=== PATIENT | male | born 1975 | race Caucasian/White ===

== ENCOUNTER 2020-10-18 17:26 | Inpatient (IN) | payer OTHER ==
[2020-10-18 20:39] VITALS: BMI 24.7
[2020-10-18] MEDS ORDERED: MAGNESIUM CITRATE 300 ML BOTTLE PO PRN (21:10)
[2020-10-18] MEDS ORDERED: ACETAMINOPHEN 325 MG TABLET (FP) PO PRN (21:10)
[2020-10-18] MEDS ORDERED: BISMUTH SUBSALICYLATE 524 MG/30 ML PO PRN (21:10)
[2020-10-18] MEDS ORDERED: MAGNESIUM HYDROX 2400MG/30ML ORAL SUSPENSION 30 ML CUP PO PRN (21:10)
[2020-10-18] MEDS ORDERED: NICOTINE 10 MG CARTRIDGE (INHALER) IH PRN (21:10)
[2020-10-18] MEDS ORDERED: methaDONE HCL 10 MG TABLET (FOR DETOX USE ONLY) PO ONE (21:10)
[2020-10-18] MEDS ORDERED: MAG HYDROX/AL HYDROX/SIMETH 30 ML UNIT-DOSE CUP PO PRN (21:10)
[2020-10-18] MEDS ORDERED: MENTHOL/PHENOL 1 EACH UD MM PRN (21:10)
[2020-10-18] MEDS: traZODone HCL 100 MG TABLET (FP) PO PRN (22:28)
[2020-10-18] MEDS: METHOCARBAMOL 500 MG TABLET PO PRN (22:28)
[2020-10-18] MEDS: MELATONIN 5 MG TABLETS PO SCH (22:28)
[2020-10-18] MEDS: hydrOXYzine PAMOATE 25 MG CAPSULE (FP) PO SCH (22:28)
[2020-10-18] MEDS: THIAMINE HCL 100 MG TABLET (FP) PO SCH (22:29)
[2020-10-18] MEDS: diazePAM 5 MG TABLET PO SCH (22:29)
[2020-10-18] MEDS: ALBUTEROL SO4 HFA INHALER IH SCH (22:41)
[2020-10-19] MEDS: ALBUTEROL SO4 HFA INHALER IH SCH ×4 (04:12→14:06)
[2020-10-19] MEDS: diazePAM 5 MG TABLET PO SCH ×4 (06:29→22:06)
[2020-10-19] MEDS: hydrOXYzine PAMOATE 25 MG CAPSULE (FP) PO SCH ×5 (06:30→22:05)
[2020-10-19] MEDS ORDERED: methaDONE HCL 10 MG TABLET (FOR DETOX USE ONLY) ONE (08:54)
[2020-10-19] MEDS: PRENATAL VITAMINS W/ FOLIC ACID TABLET (FP) PO SCH (10:13)
[2020-10-19] MEDS: METHOCARBAMOL 500 MG TABLET PO PRN ×2 (10:14→22:04)
[2020-10-19 10:52] LABS: HEMATOCRIT 36.9 % (35.4-49); HEMOGLOBIN 12.3 GM/dL (11.7-16.9); MCH 28.4 pg (25.7-33.7); MCHC 33.4 g/dl (32.0-35.9); MEAN PLT VOLUME 6.7 fl (7.5-11.1); PLATELET COUNT 306 10^3/uL (134-434); RBC 4.34 M/mm3 (4.00-5.60); RDW 14.6 % (11.9-15.9); WHITE BLOOD COUNT 4.9 K/mm3 (4.0-10.0)
[2020-10-19 12:06] LABS: BLOOD UREA NITROGEN 21.1 mg/dL (7-18); CALCIUM 8.7 mg/dL (8.5-10.1)
[2020-10-19 12:11] LABS: TOT PROT 6.4 g/dl (6.4-8.2)
[2020-10-19 12:13] LABS: BILIRUBIN,TOTAL 0.4 mg/dL (0.2-1)
[2020-10-19 12:14] LABS: ALBUMIN 3.3 g/dl (3.4-5.0)
[2020-10-19] MEDS ORDERED: ALBUTEROL SO4 HFA INHALER IH PRN (14:08)
[2020-10-19] MEDS: traZODone HCL 100 MG TABLET (FP) PO PRN (22:05)
[2020-10-19] MEDS: THIAMINE HCL 100 MG TABLET (FP) PO SCH (22:05)
[2020-10-19] MEDS: MELATONIN 5 MG TABLETS PO SCH (22:05)
[2020-10-20] MEDS: hydrOXYzine PAMOATE 25 MG CAPSULE (FP) PO SCH ×5 (07:09→22:23)
[2020-10-20] MEDS: diazePAM 5 MG TABLET PO SCH ×3 (07:09→22:23)
[2020-10-20] MEDS: ONDANSETRON *ODT* 4 MG TABLET SL PRN ×2 (08:54→20:38)
[2020-10-20] MEDS ORDERED: methaDONE HCL 10 MG TABLET (FOR DETOX USE ONLY) PO ONE (10:00)
[2020-10-20] MEDS: PRENATAL VITAMINS W/ FOLIC ACID TABLET (FP) PO SCH (11:42)
[2020-10-20] MEDS: diazePAM 5 MG TABLET PO PRN ×2 (11:42→18:11)
[2020-10-20] MEDS: cloNIDine HCL 0.1 MG TABLET PO PRN ×2 (13:02→22:25)
[2020-10-20] MEDS: METHOCARBAMOL 500 MG TABLET PO PRN (20:38)
[2020-10-20] MEDS: MELATONIN 5 MG TABLETS PO SCH (22:23)
[2020-10-20] MEDS: traZODone HCL 100 MG TABLET (FP) PO PRN (22:23)
[2020-10-20] MEDS: THIAMINE HCL 100 MG TABLET (FP) PO SCH (22:23)
[2020-10-20] MEDS: ACETAMINOPHEN 325 MG TABLET (FP) PO PRN (22:25)
[2020-10-21] MEDS: diazePAM 5 MG TABLET PO PRN ×3 (00:35→14:26)
[2020-10-21] MEDS: IBUPROFEN 400 MG TABLET (FP) PO PRN ×2 (00:38→14:28)
[2020-10-21] MEDS: hydrOXYzine PAMOATE 25 MG CAPSULE (FP) PO SCH (05:25)
[2020-10-21] MEDS: METHOCARBAMOL 500 MG TABLET PO PRN ×2 (05:25→14:26)
[2020-10-21] MEDS ORDERED: diazePAM 5 MG TABLET PO SCH (06:00)
[2020-10-21] MEDS ORDERED: methaDONE HCL 10 MG TABLET (FOR DETOX USE ONLY) ONE (08:49)
[2020-10-21] MEDS ORDERED: hydrOXYzine PAMOATE 25 MG CAPSULE (FP) PO PRN (09:27)
[2020-10-21] MEDS: PRENATAL VITAMINS W/ FOLIC ACID TABLET (FP) PO SCH (10:19)
[2020-10-21] MEDS: ONDANSETRON *ODT* 4 MG TABLET SL PRN (10:20)
[2020-10-21] MEDS: ACETAMINOPHEN 325 MG TABLET (FP) PO PRN (10:20)
[2020-10-21 13:44] VITALS: BP 115/59; PULSE 64; TEMP 97.3
[2020-10-22] MEDS ORDERED: diazePAM 5 MG TABLET PO ONE (06:00)
[2020-10-22] MEDS ORDERED: methaDONE HCL 10 MG TABLET (FOR DETOX USE ONLY) PO ONE (10:00)
== END 2020-10-21 16:47 | disposition left against medical advice (07) | DRG 770 ==
LOC: YASAS 17:26 → Y3N 21:03
PROVIDERS: ADMIT Allergy & Immunology; ATTEND Allergy & Immunology
PROC: HZ2ZZZZ Detoxification Services for Substance Abuse Treatment (ICD-10-PCS; principal; 2020-10-18)
DX: F10.230 Alcohol dependence with withdrawal, uncomplicated (principal); F11.20 Opioid dependence, uncomplicated; F14.20 Cocaine dependence, uncomplicated; F12.20 Cannabis dependence, uncomplicated; F17.210 Nicotine dependence, cigarettes, uncomplicated; F19.282 Other psychoactive substance dependence with psychoactive substance-induced sleep disorder; F19.24 Other psychoactive substance dependence with psychoactive substance-induced mood disorder; F43.10 Post-traumatic stress disorder, unspecified; J45.909 Unspecified asthma, uncomplicated; K59.00 Constipation, unspecified; M54.5 Low back pain; G89.29 Other chronic pain; Z91.013 Allergy to seafood
CPT/HCPCS: 36415; 80053; 85027; 86780; C9803; J0735; Q0162; U0003; U0005

== ENCOUNTER 2021-04-21 18:34 | Inpatient (IN) | payer OTHER ==
[2021-04-21] MEDS ORDERED: BISMUTH SUBSALICYLATE 524 MG/30 ML PO PRN (22:02)
[2021-04-21] MEDS ORDERED: ONDANSETRON *ODT* 4 MG TABLET SL PRN (22:02)
[2021-04-21] MEDS ORDERED: cloNIDine HCL 0.1 MG TABLET PO PRN (22:02)
[2021-04-21] MEDS ORDERED: IBUPROFEN 400 MG TABLET (FP) PO PRN (22:02)
[2021-04-21] MEDS ORDERED: MENTHOL/PHENOL 1 EACH UD MM PRN (22:02)
[2021-04-21] MEDS ORDERED: ACETAMINOPHEN 325 MG TABLET (FP) PO PRN ×2 (22:02)
[2021-04-21] MEDS ORDERED: methaDONE HCL 10 MG TABLET (FOR DETOX USE ONLY) PO ONE (22:02)
[2021-04-21] MEDS ORDERED: MAG HYDROX/AL HYDROX/SIMETH 30 ML UNIT-DOSE CUP PO PRN (22:02)
[2021-04-22] MEDS: METHOCARBAMOL 500 MG TABLET PO PRN ×2 (01:19→18:08)
[2021-04-22] MEDS: diazePAM 5 MG TABLET PO SCH ×5 (01:19→22:53)
[2021-04-22 04:49] VITALS: BMI 23.9
[2021-04-22] MEDS: hydrOXYzine PAMOATE 25 MG CAPSULE (FP) PO SCH ×5 (05:57→22:54)
[2021-04-22] MEDS ORDERED: methaDONE HCL 10 MG TABLET (FOR DETOX USE ONLY) ONE (09:15)
[2021-04-22] MEDS: SULFAMETHOXAZOLE/TRIMETHOPRIM 800MG/160MG D.S. TABLET PO SCH ×2 (11:21→22:54)
[2021-04-22 12:36] LABS: HEMOGLOBIN 12.5 GM/dL (11.7-16.9); MCH 28.5 pg (25.7-33.7); MEAN CELL VOLUME 86.5 fl (80-96); PLATELET COUNT 303 10^3/uL (134-434); RDW 14.5 % (11.9-15.9); WHITE BLOOD COUNT 5.4 K/mm3 (4.0-10.0)
[2021-04-22 12:37] LABS: BLOOD UREA NITROGEN 20.6 mg/dL (7-18); CALCIUM 8.9 mg/dL (8.5-10.1)
[2021-04-22 12:38] LABS: ALBUMIN 3.4 g/dl (3.4-5.0)
[2021-04-22 12:41] LABS: CREATININE 1.1 mg/dL (0.55-1.3)
[2021-04-22 12:42] LABS: BILIRUBIN,TOTAL 0.7 mg/dL (0.2-1); TOT PROT 6.7 g/dl (6.4-8.2)
[2021-04-22 13:30] LABS: HIV INTERPRETATION NEGATIVE (NEGATIVE)
[2021-04-22] MEDS: MELATONIN 5 MG TABLETS PO SCH (22:54)
[2021-04-23] MEDS: hydrOXYzine PAMOATE 25 MG CAPSULE (FP) PO SCH ×5 (05:59→22:10)
[2021-04-23] MEDS: diazePAM 5 MG TABLET PO SCH ×3 (05:59→22:11)
[2021-04-23] MEDS: METHOCARBAMOL 500 MG TABLET PO PRN (06:00)
[2021-04-23] MEDS ORDERED: methaDONE HCL 10 MG TABLET (FOR DETOX USE ONLY) PO ONE (10:00)
[2021-04-23] MEDS: SULFAMETHOXAZOLE/TRIMETHOPRIM 800MG/160MG D.S. TABLET PO SCH ×2 (10:34→22:52)
[2021-04-23] MEDS: diazePAM 5 MG TABLET PO PRN (11:12)
[2021-04-23] MEDS ORDERED: ALBUTEROL SO4 HFA INHALER IH PRN (14:58)
[2021-04-23] MEDS: MELATONIN 5 MG TABLETS PO SCH (22:10)
[2021-04-24] MEDS: diazePAM 5 MG TABLET PO PRN (01:39)
[2021-04-24] MEDS ORDERED: diazePAM 5 MG TABLET PO SCH (06:00)
[2021-04-24] MEDS: hydrOXYzine PAMOATE 25 MG CAPSULE (FP) PO SCH ×2 (06:18→09:15)
[2021-04-24] MEDS: SULFAMETHOXAZOLE/TRIMETHOPRIM 800MG/160MG D.S. TABLET PO SCH (09:15)
[2021-04-24 09:40] VITALS: BP 130/82; PULSE 91; TEMP 97.3
[2021-04-25] MEDS ORDERED: diazePAM 5 MG TABLET PO ONE (06:00)
[2021-04-25] MEDS ORDERED: methaDONE HCL 10 MG TABLET (FOR DETOX USE ONLY) PO ONE (10:00)
== END 2021-04-24 09:31 | disposition left against medical advice (07) | DRG 770 ==
LOC: YASAS 18:34 → Y6N 22:49
PROVIDERS: ADMIT Allergy & Immunology; ATTEND Allergy & Immunology
PROC: HZ2ZZZZ Detoxification Services for Substance Abuse Treatment (ICD-10-PCS; principal; 2021-04-21)
DX: F11.23 Opioid dependence with withdrawal (principal); F10.230 Alcohol dependence with withdrawal, uncomplicated; F17.210 Nicotine dependence, cigarettes, uncomplicated; L02.511 Cutaneous abscess of right hand; R79.89 Other specified abnormal findings of blood chemistry; Z87.09 Personal history of other diseases of the respiratory system; Z91.013 Allergy to seafood
CPT/HCPCS: 36415; 80053; 82962; 85027; 86780; 87389; C9803; U0003; U0005

== ENCOUNTER 2022-04-24 15:23 | Inpatient (IN) | payer OTHER ==
[2022-04-24 16:04] VITALS: BMI 22.0
[2022-04-24] MEDS ORDERED: METHOCARBAMOL 500 MG TABLET PO PRN (16:12)
[2022-04-24] MEDS ORDERED: NALOXONE HCL (KLOXXADO) 8 MG SPRAY NS PRN (16:12)
[2022-04-24] MEDS ORDERED: MAGNESIUM HYDROX 2400MG/30ML ORAL SUSPENSION 30 ML CUP PO PRN (16:12)
[2022-04-24] MEDS ORDERED: BENZOCAINE/MENTHOL (CHLORASEPTIC ) LOZENGE MM PRN (16:12)
[2022-04-24] MEDS ORDERED: BISMUTH SUBSALICYLATE 524 MG/30 ML PO PRN (16:12)
[2022-04-24] MEDS ORDERED: IBUPROFEN 400 MG TABLET (FP) PO PRN (16:12)
[2022-04-24] MEDS ORDERED: hydrOXYzine PAMOATE 25 MG CAPSULE (FP) PO PRN (16:12)
[2022-04-24] MEDS ORDERED: ACETAMINOPHEN 325 MG TABLET (FP) PO PRN ×2 (16:12)
[2022-04-24] MEDS ORDERED: LOPERAMIDE HCL 2 MG CAPSULE PO PRN (16:12)
[2022-04-24] MEDS ORDERED: MAG HYDROX/AL HYDROX/SIMETH 30 ML UNIT-DOSE CUP PO PRN (16:12)
[2022-04-24] MEDS ORDERED: cloNIDine HCL 0.1 MG TABLET PO PRN (16:12)
[2022-04-24] MEDS ORDERED: DICYCLOMINE HCL 10 MG CAPSULE PO PRN (16:12)
[2022-04-24] MEDS ORDERED: ONDANSETRON *ODT* 4 MG TABLET SL PRN (16:12)
[2022-04-24] MEDS ORDERED: IBUPROFEN 600 MG TABLET (FP) PO PRN (16:12)
[2022-04-24] MEDS ORDERED: POLYETHYLENE GLYCOL (HEALTHYLAX) 3350 17 GM PACKET PO PRN (16:12)
[2022-04-24] MEDS: PRENATAL VITAMINS W/ FOLIC ACID TABLET (FP) PO SCH (18:42)
[2022-04-24] MEDS: diazePAM 5 MG TABLET PO SCH ×3 (18:43→22:10)
[2022-04-24] MEDS: AMOX TR/POT CLAV 875MG/125MG TABLETS (FP) PO SCH (22:10)
[2022-04-24] MEDS: MELATONIN 5 MG TABLETS PO SCH (22:11)
[2022-04-24] MEDS: THIAMINE HCL 100 MG TABLET (FP) PO SCH (22:12)
[2022-04-24] MEDS: NICOTINE 10 MG CARTRIDGE (INHALER) IH PRN (23:39)
[2022-04-25] MEDS: diazePAM 5 MG TABLET PO SCH ×4 (05:27→22:17)
[2022-04-25] MEDS ORDERED: methaDONE HCL 10 MG TABLET (FOR DETOX USE ONLY) PO ONE (10:00)
[2022-04-25] MEDS: PRENATAL VITAMINS W/ FOLIC ACID TABLET (FP) PO SCH (10:07)
[2022-04-25] MEDS: NICOTINE 10 MG CARTRIDGE (INHALER) IH PRN ×2 (10:07→15:43)
[2022-04-25] MEDS: AMOX TR/POT CLAV 875MG/125MG TABLETS (FP) PO SCH ×2 (11:55→22:17)
[2022-04-25 21:12] VITALS: RESP 18
[2022-04-25] MEDS: THIAMINE HCL 100 MG TABLET (FP) PO SCH (22:17)
[2022-04-25] MEDS: MELATONIN 5 MG TABLETS PO SCH (22:19)
[2022-04-26] MEDS ORDERED: diazePAM 5 MG TABLET PO SCH (06:00)
[2022-04-26] MEDS: AMOX TR/POT CLAV 875MG/125MG TABLETS (FP) PO SCH (09:05)
[2022-04-26 09:18] VITALS: BP 127/66; PULSE 71; TEMP 97.8
[2022-04-27] MEDS ORDERED: diazePAM 5 MG TABLET PO SCH (06:00)
[2022-04-27] MEDS ORDERED: methaDONE HCL 10 MG TABLET (FOR DETOX USE ONLY) PO ONE (10:00)
[2022-04-28] MEDS ORDERED: diazePAM 5 MG TABLET PO ONE (06:00)
== END 2022-04-26 09:33 | disposition left against medical advice (07) | DRG 770 ==
LOC: YASAS 15:23 → Y6N 18:10
PROVIDERS: ADMIT Allergy & Immunology; ATTEND Surgery
PROC: HZ2ZZZZ Detoxification Services for Substance Abuse Treatment (ICD-10-PCS; principal; 2022-04-24)
DX: F11.23 Opioid dependence with withdrawal (principal); F10.230 Alcohol dependence with withdrawal, uncomplicated; F17.210 Nicotine dependence, cigarettes, uncomplicated; L03.114 Cellulitis of left upper limb; R73.9 Hyperglycemia, unspecified; Z91.013 Allergy to seafood
CPT/HCPCS: 0241U-QW; 36415; 73110-TC-LT-FY; 73130-TC-LT-FY; 73201-TC-RT; 80048; 80053; 82962; 83036; 83735; 84100; 85025; 85651; 86140; 86780; 87040; 87070; 87081; 87205; G0378; G0480; Q9967

== ENCOUNTER 2023-11-30 02:49 | Inpatient (IN) | payer OTHER ==
[2023-11-30 03:13] VITALS: BMI 24.3
[2023-11-30] MEDS ORDERED: ONDANSETRON *ODT* 4 MG TABLET SL PRN (04:44)
[2023-11-30] MEDS ORDERED: IBUPROFEN 400 MG TABLET (FP) PO PRN (04:44)
[2023-11-30] MEDS ORDERED: MAG HYDROX/AL HYDROX/SIMETH 30 ML UNIT-DOSE CUP PO PRN (04:44)
[2023-11-30] MEDS ORDERED: BENZONATATE 200 MG CAPSULE PO PRN (04:44)
[2023-11-30] MEDS ORDERED: LOPERAMIDE HCL 2 MG CAPSULE PO PRN (04:44)
[2023-11-30] MEDS ORDERED: MAGNESIUM HYDROX 2400MG/30ML ORAL SUSPENSION 30 ML CUP PO PRN (04:44)
[2023-11-30] MEDS ORDERED: NALOXONE (NARCAN) HCL 4 MG/0.1 ML SPRAY NS PRN (04:44)
[2023-11-30] MEDS ORDERED: guaiFENesin 600 MG TABLET.ER (FP) PO PRN (04:44)
[2023-11-30] MEDS ORDERED: ACETAMINOPHEN 325 MG TABLET (FP) PO PRN (04:44)
[2023-11-30] MEDS ORDERED: BISMUTH SUBSALICYLATE 524 MG/30 ML PO PRN (04:44)
[2023-11-30] MEDS ORDERED: POLYETHYLENE GLYCOL (HEALTHYLAX) 3350 17 GM PACKET PO PRN (04:44)
[2023-11-30] MEDS ORDERED: BENZOCAINE/MENTHOL (CHLORASEPTIC ) LOZENGE MM PRN (04:44)
[2023-11-30] MEDS: methaDONE HCL 10 MG TABLET (FOR DETOX USE ONLY) PO ONE (05:17)
[2023-11-30] MEDS ORDERED: NICOTINE 14 MG/24 HOURS TOPICAL PATCH TD ONE (09:04)
[2023-11-30] MEDS ORDERED: PRENATAL VITAMINS W/ FOLIC ACID TABLET (FP) PO ONE (09:04)
[2023-11-30] MEDS: PRENATAL VITAMINS W/ FOLIC ACID TABLET (FP) PO SCH (09:08)
[2023-11-30] MEDS: NICOTINE 14 MG/24 HOURS TOPICAL PATCH TD SCH (09:08)
[2023-11-30] MEDS: MELATONIN 5 MG TABLETS PO SCH (22:29)
[2023-11-30] MEDS: METHOCARBAMOL 500 MG TABLET PO PRN (22:29)
[2023-11-30] MEDS: cloNIDine HCL 0.1 MG TABLET PO PRN (22:29)
[2023-11-30] MEDS: THIAMINE 100 MG TABLET PO SCH (22:29)
[2023-11-30] MEDS: hydrOXYzine PAMOATE 25 MG CAPSULE (FP) PO PRN (22:29)
[2023-12-01] MEDS: IBUPROFEN 600 MG TABLET (FP) PO PRN (09:06)
[2023-12-01] MEDS ORDERED: methaDONE HCL 10 MG TABLET PO PRN (11:22)
[2023-12-01] MEDS: amLODIPine BESYLATE 2.5 MG TABLET (FP) PO SCH (12:06)
[2023-12-01] MEDS: hydrOXYzine PAMOATE 25 MG CAPSULE (FP) PO PRN (12:06)
[2023-12-01] MEDS: cloNIDine HCL 0.1 MG TABLET PO PRN (18:10)
[2023-12-01] MEDS: traZODone HCL 50 MG TABLET (FP) PO SCH (21:55)
[2023-12-02] MEDS: DICYCLOMINE HCL 10 MG CAPSULE PO PRN (03:05)
[2023-12-02] MEDS: methaDONE 40 MG, methaDONE 10 MG PO ONE (09:28)
[2023-12-02] MEDS ORDERED: methaDONE HCL 10 MG TABLET (FOR DETOX USE ONLY) PO ONE (10:00)
[2023-12-03] MEDS ORDERED: cloNIDine HCL 0.1 MG TABLET PO PRN
[2023-12-03 06:48] VITALS: TEMP 97.7
[2023-12-03] MEDS: methaDONE 40 MG, methaDONE 20 MG PO ONE (09:26)
[2023-12-03 09:32] VITALS: BP 135/96; RESP 18
[2023-12-03 09:35] VITALS: PULSE 72
[2023-12-03] MEDS: NALOXONE (NYS OPIOID OVERDOSE PROGRAM) 4 MG/0.1 ML SPRAY NS PRN (10:06)
[2023-12-04] MEDS ORDERED: methaDONE 40 MG, methaDONE 30 MG PO ONE (10:00)
[2023-12-04] MEDS ORDERED: methaDONE HCL 10 MG TABLET (FOR DETOX USE ONLY) PO ONE (10:00)
[2023-12-05] MEDS ORDERED: methaDONE HCL 40 MG DISPERSABLE TABLET PO ONE (10:00)
== END 2023-12-03 10:15 | disposition home or self-care (01) | DRG 773 ==
LOC: YASAS 02:49 → Y6N 08:50
PROVIDERS: ADMIT Neuromusculoskeletal Medicine & OMM; ATTEND Neuromusculoskeletal Medicine & OMM
PROC: HZ2ZZZZ Detoxification Services for Substance Abuse Treatment (ICD-10-PCS; principal; 2023-11-30)
DX: F11.23 Opioid dependence with withdrawal (principal); F14.20 Cocaine dependence, uncomplicated; F17.210 Nicotine dependence, cigarettes, uncomplicated; G47.00 Insomnia, unspecified
CPT/HCPCS: 36415; 80305; 80307; 93005; 93010